=== PATIENT | male | born 1970 | race Caucasian/White ===

== ENCOUNTER 2021-04-04 06:34 | Day surgery (SDC) | payer BC ==
[2021-03-29 10:25] VITALS: BMI 33.4
[2021-04-04] MEDS ORDERED: BUPIVACAINE LIPOSOME/PF (EXPAREL) 266 MG/20 ML VIAL ONE (06:41)
[2021-04-04] MEDS ORDERED: MIDAZOLAM HCL 2 MG/2 ML SINGLE DOSE VIAL ONE ×2 (06:41→07:52)
[2021-04-04] MEDS ORDERED: SODIUM CHLORIDE 0.9% P/F 10 ML VIAL IJ ONE (06:42)
[2021-04-04] MEDS ORDERED: BUPIVACAINE HCL/PF 0.5% (5MG/ML) 10 ML VIAL ONE (06:42)
[2021-04-04] MEDS ORDERED: BUPIVACAINE HCL/EPINEPHRINE/PF 30 ML VIAL IJ ONE (07:20)
[2021-04-04] MEDS ORDERED: EPINEPHrine 1:1,000 1,000 MCG/ML ML ONE (07:20)
[2021-04-04] MEDS ORDERED: LIDOCAINE HCL/PF 2% SDV 5ML VIAL ONE (07:50)
[2021-04-04] MEDS ORDERED: LIDOCAINE HCL 2% JELLY (5 ML/TUBE) ONE (07:50)
[2021-04-04] MEDS ORDERED: PROPOFOL 20 ML ONE ×5 (07:51→09:21)
[2021-04-04] MEDS ORDERED: fentaNYL CITRATE 250 MCG/5 ML VIAL ONE (07:51)
[2021-04-04] MEDS ORDERED: SUCCINYLCHOLINE CHLORIDE 200 MG/10 ML SYRINGE ONE (07:59)
[2021-04-04] MEDS ORDERED: ceFAZolin SODIUM 1 GM VIAL ONE (08:05)
[2021-04-04] MEDS ORDERED: KETOROLAC TROMETHAMINE 30 MG/1 ML VIAL ONE (08:05)
[2021-04-04] MEDS ORDERED: ONDANSETRON 4 MG/2 ML VIAL ONE (08:05)
[2021-04-04] MEDS ORDERED: TRANEXAMIC ACID 1000 MG/10 ML VIAL ONE (08:05)
[2021-04-04] MEDS ORDERED: DEXAMETHASONE SOD PHOSPHATE 4 MG/1 ML VIAL ONE (08:05)
[2021-04-04] MEDS ORDERED: VANCOMYCIN 1,000 MG VIAL (RESTRICTED TO ID ONLY) ONE (08:38)
[2021-04-04] MEDS ORDERED: PROMETHAZINE HCL 25 MG/1 ML VIAL IVPUSH PRN (10:27)
[2021-04-04] MEDS ORDERED: oxyCODONE HCL 5 MG TABLET PO PRN ×2 (10:27)
[2021-04-04] MEDS ORDERED: ONDANSETRON 4 MG/2 ML VIAL IVPUSH PRN (10:27)
[2021-04-04 10:41] VITALS: TEMP 97.8
[2021-04-04 12:28] VITALS: BP 132/84; PULSE 79
== END 2021-04-04 12:20 | disposition home or self-care (01) ==
LOC: FASU 06:34
PROVIDERS: ATTEND Orthopaedic Surgery
PROC: 0SJC4ZZ Inspection of Right Knee Joint, Percutaneous Endoscopic Approach (ICD-10-PCS; principal; 2021-04-04 08:22)
DX: S83.511A Sprain of anterior cruciate ligament of right knee, initial encounter (principal); M25.361 Other instability, right knee; X58.XXXA Exposure to other specified factors, initial encounter; Y93.9 Activity, unspecified; Y92.9 Unspecified place or not applicable
CPT/HCPCS: 94760